=== PATIENT | male | born 1960 | race Caucasian/White ===

== ENCOUNTER 2017-10-15 11:43 | Day surgery (SDC) | payer BC ==
[~2017-10-15 11:43] MED LIST: Lactated Ringers 1,000 ML IV SCH
[2017-10-15] MEDS ORDERED: fentaNYL 100 MCG/2 ML SDV ONE (12:15)
[2017-10-15] MEDS ORDERED: Propofol 200 MG/20 ML SDV ONE ×3 (12:17→14:40)
[2017-10-15] MEDS ORDERED: Lidocaine 2% 5 ML SDV ONE (12:18)
--- NOTE | 2017-10-15 12:41 | PCM.PREANE ---
Preanesthetic Assessment - Anesthesia/Transfusion/Family Hx Anesthesia History: Prior Anesthesia Without Reaction Family History of Anesthesia Reaction: No Transfusion History: No Prior Transfusion(s) Intubation History: Unknown - Review of Systems General: No Symptoms Pulmonary: No Symptoms Cardiovascular: No Symptoms Gastrointestinal: Difficulty Swallowing, Hematochezia Neurological: No Symptoms Other: Reports: None - Physical Assessment O2 Sat by Pulse Oximetry: 96 Respiratory Rate: 16 Vital Signs: Last Vital Signs Temp 36.6 C 10/15/17 12:18 Pulse 75 10/15/17 12:18 Resp 16 10/15/17 12:18 BP 161/82 H 10/15/17 12:23 Pulse Ox 96 10/15/17 12:18 Height: 1.83 m Weight: 180.076 kg ASA Class: 3 Mental Status: Alert & Oriented x3 Airway Class: Mallampati = 2 Dentition: Reports: Normal Dentition Thyro-Mental Finger Breadths: 3 Mouth Opening Finger Breadths: 3 ROM/Head Extension: Full Lungs: Clear to Auscultation, Normal Respiratory Effort Cardiovascular: Regular Rate, Regular Rhythm - Allergies Allergies/Adverse Reactions: Allergies Allergy/AdvReac Type Severity Reaction Status Date / Time No Known Allergies Allergy Verified 10/09/17 12:31 - Blood Blood Available: No - Anesthesia Plan Pre-Op Medication Ordered: None - Acknowledgements Anesthesia Type Planned: MAC (GETA back-up plan) Pt an Appropriate Candidate for the Planned Anesthesia: Yes Alternatives and Risks of Anesthesia Discussed w Pt/Guardian: Yes Pt/Guardian Understands and Agrees with Anesthesia Plan: Yes PreAnesthesia Questionnaire HEENT History: Reports: Other (See Below) Other HEENT History: wears glasses/contacts Cardiovascular History: Reports: High Cholesterol, Hypertension Respiratory History: Reports: Other (See Below) Other Respiratory History: 6-8 months change in voice, Gastrointestinal History: Reports: None Genitourinary History: Reports: None Musculoskeletal History: Reports: Arthritis Neurological History: Reports: None Psychiatric History: Reports: None Endocrine/Metabolic History: Reports: Obesity/BMI 30+ (morbid obesity BMI 53.8) Hematologic History: Reports: None Immunologic History: Reports: None Oncologic (Cancer) History: Reports: Basal Cell Carcinoma - Past Surgical History Head Surgeries/Procedures: Reports: None HEENT Surgical History: Reports: Naso-Sinus Surgery GI Surgical History: Reports: Bariatric Procedure, Hernia, Abdominal (umbilical) Other GI Surgeries/Procedures: hx bariatric surgery, hx of umbilical heria repair Male Surgical History: Reports: Vasectomy Neurological Surgical History: Reports: Lumbar Spine Other Neurological Surgeries/Procedures: hx back surgery Musculoskeletal Surgical History: Reports: Knee Replacement, Shoulder Surgery Other Musculoskeletal Surgeries/Procedures:: jg knee replacements, right shoulder surgery (biceps tendon repair) Dermatological Surgical History: Reports: Skin Biopsy - SUBSTANCE USE Smoking Status *Q: Never Smoker Recreational Drug Use History: No - HOME MEDS Home Medications: Home Meds Calcium Carb/Vit D3/Minerals [Calcium 600+D Plus Minerals] 1 tab PO DAILY [History] Cholecalciferol (Vitamin D3) [Vitamin D3] 1,000 units PO DAILY 10/09/17 [History ] Cinnamon Bark [Cinnamon] 500 mg PO DAILY 10/09/17 [History] Fish Oil/[place]-3 Fatty Acids [Fish Oil 1,000 MG] 1,000 mg PO DAILY 10/09/17 [ History] Hydrochlorothiazide 25 mg PO DAILY 10/09/17 [History] Magnesium Oxide [Magnesium] 400 mg PO DAILY 10/09/17 [History] Multivit-Min/Iron/Folic/[id number] [Hair, Skin and Nails Tablet] 1 tab PO DAILY [History] Multivitamin [Multivitamins] 1 tab PO DAILY 10/09/17 [History] Naproxen Sodium [Aleve] 3 tab PO ASDIRECTED PRN 10/09/17 [History] Omeprazole 20 mg PO DAILY 10/09/17 [History] Potassium 99 mg PO DAILY 10/09/17 [History] Bianka-Plus G 1 tab PO DAILY 10/09/17 [History] atorvaSTATin Calcium [Atorvastatin Calcium] 10 mg PO DAILY 10/09/17 [History] - CURRENT (IN HOUSE) MEDS Current Meds: Current Medications Lactated Ringer's (Ringers, Lactated) 1,000 mls @ 125 mls/hr IV ASDIRECTED HANANE Last Admin: 10/15/17 12:14 Dose: 125 mls/hr Discontinued Medications Fentanyl (Sublimaze) Confirm Administered Dose 100 mcg .ROUTE .STK-MED ONE Stop: 10/15/17 12:16 Lidocaine (Xylocaine-Mpf 2%) Confirm Administered Dose 5 ml .ROUTE .STK-MED ONE Stop: 10/15/17 12:19 Propofol (Diprivan 20 Ml) Confirm Administered Dose 400 mg .ROUTE .[facility] Stop: 10/15/17 12:18
[2017-10-15] MEDS ORDERED: Ondansetron 4 MG Tab.DIS PO PRN (14:46)
--- NOTE | 2017-10-15 14:50 | PCM.OPNOTE ---
- General Post-Op/Procedure Note Date of Surgery/Procedure: 10/15/17 Operative Procedure(s): EGD w/ biopsy. Colonoscopy with cold sigmoid polypectomy Pre Op Diagnosis: Progressive gastroesophageal reflux disease. Rectal bleeding. Post-Op Diagnosis: Gastritis. Sigmoid polyp. Anesthesia Technique: MAC (ASA III) Primary Surgeon: Phillip Jewell Supervisor Industrial Garment: Julius Ro Condition: Good Free Text/Narrative:: Dictation [id number] CPT CODE [id number]
[2017-10-15] MEDS ORDERED: Lactated Ringers 1,000 ML IV SCH (15:00)
--- NOTE | 2017-10-15 20:20 | OR ---
SURGEON: Phillip Jewell M.D. DATE OF PROCEDURE: 10/15/2017 OPERATION PERFORMED: Esophagogastroduodenoscopy with biopsy. DIRECTOR OF PATIENT SAFETY: Dr. Ro, PGY3 ANESTHESIA: MAC. ASA CLASSIFICATION: III. PREOPERATIVE DIAGNOSIS: Progressive heartburn with change in voice. POSTOPERATIVE DIAGNOSES: 1. Mild gastritis. 2. Patent anastomosis. 3. No obvious neoplasia. DESCRIPTION OF PROCEDURE: The patient was taken to the endoscopy room, positioned on the endoscopy table in the left lateral decubitus position. Time-out was called for appropriate identification of patient and procedure. Monitored anesthesia care was provided. The bite block was placed between the patient's teeth. The gastroscope was inserted into the mouth and advanced without difficulty through the esophagus into the stomach, and subsequently through a widely patent anastomosis into the proximal jejunum. No anastomotic ulcerations are noted. There was no obvious tumor mass. The stomach does show [id number] gastritis. Antral biopsies were obtained to look for the presence of Helicobacter pylori. The gastroscope was able to be retroflexed as well. The GE junction was well defined and shows no acute inflammatory changes or ulcerations. The esophagus demonstrates fair contractility. No mid or proximal lesions were identified. The vocal cords were briefly visualized as the scope was withdrawn and noted to move symmetrically. The gastroscope was then removed. The patient tolerated this portion of the procedure well. Following colonoscopy, he was taken to recovery room in stable condition. RANI ALTAMIRANO /[id number]
--- NOTE | 2017-10-15 20:23 | OR ---
SURGEON: Phillip Jewell M.D. DATE OF PROCEDURE: 10/15/2017 OPERATION PERFORMED: Colonoscopy with cold sigmoid polypectomy. BED WORKER: Dr. Ro, PGY3 ANESTHESIA: MAC. ASA CLASSIFICATION: III. PREOPERATIVE DIAGNOSIS: Rectal bleeding. POSTOPERATIVE DIAGNOSIS: Sigmoid polyp. DESCRIPTION OF PROCEDURE: With the patient having completed esophagogastroduodenoscopy with biopsy, he was now again kept in the left lateral decubitus position. The colonoscope was inserted into the rectum and advanced with minimal difficulty to the cecum where the colonoscope was retroflexed to visualize the ascending colon from below. The colonoscope was then straightened and slowly withdrawn. The cecum, ascending colon, hepatic flexure, transverse colon, and splenic flexure showed no tumors, polyps, diverticula, or angiodysplasia. The descending colon showed no tumors or polyps. The sigmoid colon demonstrated one small polyp. This was easily removed with the cold biopsy forceps. There was no significant bleeding. The colonoscope was then withdrawn to the rectum and retroflexed to visualize the anal orifice from above. No tumors, polyps, or acute hemorrhoidal changes were noted. The colonoscope was then straightened, the rectum aspirated, and the colonoscope removed. The patient tolerated the procedure well, and was taken to recovery room in stable condition. RANI / ADARSH /[id number]
== END 2017-10-15 15:22 | disposition home or self-care (01) ==
LOC: MW.SDS 11:43
PROVIDERS: ATTEND Surgery
DX: K29.50 Unspecified chronic gastritis without bleeding (principal); D12.5 Benign neoplasm of sigmoid colon; I10 Essential (primary) hypertension; E78.00 Pure hypercholesterolemia, unspecified; Z79.899 Other long term (current) drug therapy
CPT/HCPCS: 43239; 45380; J3010; J7120; 88305; 88312; J2704